=== PATIENT | male | born 1995 | race Two or more races ===

== ENCOUNTER 2021-10-19 23:18 | Emergency (ER) | payer OTHER ==
[2021-10-19 23:26] VITALS: BP 125/78; PULSE 68; TEMP 98.6; BMI 29.2
[2021-10-20] MEDS ORDERED: TETRACAINE 0.5% OPHTH SOLN 2 ML BOTTLE ONE (00:05)
[2021-10-20] MEDS ORDERED: FLUORESCEIN NA 1 EA STRIP ONE (00:06)
[2021-10-20] MEDS ORDERED: TETRACAINE 0.5% HCL 0.6ML DROPPER.BOTTLE OU ONE (00:06)
[2021-10-20] MEDS ORDERED: FLUORESCEIN NA 1 EA STRIP OU ONE (00:06)
[2021-10-20] MEDS ORDERED: ERYTHROMYCIN 0.5% OPHTHALMIC OINTMENT 3.5 GM TUBE OU ONE (00:12)
[2021-10-20] MEDS ORDERED: ERYTHROMYCIN 0.5% OPHTHALMIC OINTMENT 3.5 GM TUBE ONE (00:35)
[2021-10-20] MEDS ORDERED: IBUPROFEN 600 MG TABLET (FP) PO ONE ×2 (00:35)
== END 2021-10-20 00:47 | disposition home or self-care (01) ==
LOC: JER 23:18
DX: H57.813 Brow ptosis, bilateral (principal)
CPT/HCPCS: 99283-25